=== PATIENT | female | born 1975 | race Caucasian/White ===

== ENCOUNTER 2020-08-13 11:12 | Inpatient (IN) | payer BC ==
[2020-08-13] MEDS ORDERED: Sodium Chloride 0.9% 2.5 ML Syringe FLUSH PRN ×2 (11:31→15:27)
[2020-08-13] MEDS ORDERED: Sodium Chloride 0.9% 10 ML Syringe FLUSH PRN (11:31)
--- NOTE | 2020-08-13 11:37 | EDM.PDOC ---
ED HPI GENERAL MEDICAL PROBLEM - General Chief Complaint: Bite:Animal, Insect Stated Complaint: INFECTED RT HAND Time Seen by Provider: 08/13/20 11:20 Source of Information: Reports: Patient History Limitations: Reports: No Limitations - History of Present Illness INITIAL COMMENTS - FREE TEXT/NARRATIVE: HISTORY AND PHYSICAL: History of present illness: The patient is a 45-year-old female who presents to the emergency room for complaints of increased right hand erythema and swelling from the cat bite from Tuesday. The cat is the patient's and is up to date on vaccinations. The patient is up to date on her tetanus per the patient. The patient saw Dr. Frausto on Tuesday afternoon and was prescribed Augmentin she took 2 tablets on Tuesday, 2 tablets yesterday, and 1 tablet today. She has had increased redness and swelling each day. Yesterday she mandeep a graham around her the edges of the erythema and today there is marked erythema superior to wound. Dr. Frausto had jah d the patient to watch for the advancement of the red line, however, the patient thought that Dr. Frausto meant streaks of a red line and not the advancement of her already present erythema. The patient went to see Dr. Frautso today and was sent to the ED for evaluation of IV antibiotic therapy due to failed oral antibiotic therapy. Patient is rating her right hand pain 8/10. The patient is hemodynamically stable with a pulse of 83 and blood pressure of 147/91 in the emergency department. She is afebrile with a temperature of 97.5. Patient denies any fever, chills, headache, change in vision, syncope or near syncope. Denies any chest pain, back pain, shortness of breath or cough. Denies any abdominal pain, nausea, vomiting, diarrhea, constipation or dysuria. Has not noted any blood in urine or stool. Patient has been eating and drinking appropriately. Review of systems: As per history of present illness and below otherwise all systems reviewed and negative. Past medical history: As per history of present illness and as reviewed below otherwise noncontributory. Surgical history: As per history of present illness and as reviewed below otherwise noncontributory. Social history: See social history for further information Family history: As per history of present illness and as reviewed below otherwise noncontributory. Physical exam: General: Well developed and well nourished. Alert and orientated x 3. Nontoxic in appearance and in no acute distress. Vital signs are stable and have been reviewed by me. Nursing notes were reviewed. HEENT: Atraumatic, normocephalic, pupils equal and reactive bilaterally, negative for conjunctival pallor or scleral icterus, mucous membranes moist, TMs normal bilaterally, throat clear, neck supple, nontender, trachea midline. No drooling or trismus noted. No meningeal signs. No hot potato voice noted. Lungs: Clear to auscultation bilaterally. No wheezes, rales, or rhonchi. Chest nontender. Normal work of breathing, no accessory muscles used. Heart: S1S2, regular rate and rhythm without overt murmur, gallops, or rubs. No JVD. No peripheral edema Abdomen: Soft, nondistended, nontender. Normoactive bowel sounds. Negative for m asses or costovertebral tenderness. Skin: Right hand edematous with erythema from tips of fingers extending 13 cm up forearm. Tender to touch. Sensation intact. Unable to thumb touch 1st -4th finger, unable to 5th due to pain. RT. Radial pulse 3+. Hematologic: No petechiae or purpra. Mucosa appropriate color and normal nail bed color and refill. Extremities: Atraumatic, moves all extremities per self without difficulty or deficits, negative for cords or calf pain. Neurovascular unremarkable. Neuro: Awake, alert, oriented. Cranial nerves II through XII unremarkable. Cerebellum unremarkable. Motor and sensory unremarkable throughout. Exam nonfocal. Psychiatric: Mood and affect are appropriate. Normal thought process. Answering questions appropriately. Notes: *This patient was seen and evaluated during the 2019 SARS-CoV-2 novel coronavirus pandemic period. Community viral transmission is ongoing at time of this encounter and the emergency department is operating under pandemic response procedures. After examination and discussion the patient is agreeable to CBC, CMP, blood cultures, and x-ray, COVID 19 swab, and IV pain medication. Patient informed of possible need for admission for IV antibiotic therapy due to failed outpatient antibiotic therapy. I spoke with Dr. Campos, hospitalist, she asked for a CT of the hand with contrast to look for an abscess after CMP is resulted. The patient's GFR and creatinine are within normal limits, CT of hand with contrast ordered. Patient is aware and agreeable to CT. She states her pain is better. The patient's CBC and CMP are unremarkable. The hand x-rayImpression: Severe dorsal and distal forearm soft tissue swelling without obvious subcutaneous emphysema or radiopaque foreign body. No displaced fracture. Hand CT IMPRESSION: 1. Fat infiltration in the dorsum of the hand, wrist, and distal forearm from edema or cellulitis. Small amount of fluid in the 3rd extensor compartment tendon sheath and around the flexor tendons at the wrist. Septic tenosynovitis is not excluded. No fluid collections otherwise. 2. No bony abnormality. Dr. Campos paged. Dr. Campos to look at the hand CT and return call. Dr. Wallace returned phone call, and after reviewing the CT agreed to inpatient admission without telemetry. Dr. Campos would like Zosyn 3.375 g and clindamycin 600 mg given IV. The patient is informed and is agreeable to the plan. Diagnostics: CBC, CMP, blood cultures, Rt. hand x-ray, Covid swab, CT of Rt. hand Therapeutics: IV Toradol, IV fluids, Zosyn 3.375 gm, clindamycin 600 mg Impression: Right hand cellulitis Definitive disposition and diagnosis as appropriate pending reevaluation and review of above. right wrist Pain Score (Numeric/FACES): 8 - Related Data Allergies Allergy/AdvReac Type Severity Reaction Status Date / Time No Known Allergies Allergy Verified 08/13/20 15:58 Home Meds: Home Meds Amoxicillin/Potassium Clav [Amox-Clav 875-125 mg Tablet] 1 tab PO Q12H 08/13/20 [History] Levothyroxine 1 tab PO DAILY 08/13/20 [History] Past Medical History HEENT History: Reports: Other (See Below) Other HEENT History: wears glasses Endocrine/Metabolic History: Reports: Hypothyroidism Other Endocrine/Metabolic History: does not take medication Dermatologic History: Reports: Other (See Below) Other Dermatologic History: hx of hand wound positive for MRSA - Infectious Disease History Infectious Disease History: Reports: None Social & Family History - Family History Family Medical History: No Pertinent Family History - Tobacco Use Tobacco Use Status *Q: Never Tobacco User - Caffeine Use Caffeine Use: Reports: None - Recreational Drug Use Recreational Drug Use: No ED ROS GENERAL - Review of Systems Review Of Systems: Comprehensive ROS is negative, except as noted in HPI. ED EXAM, ANIMAL BITE - Physical Exam Exam: See Below (See dictation) Course - Vital Signs Last Recorded V/S: Last Vital Signs Temp 99.3 F 08/13/20 19:49 Pulse 77 08/13/20 19:49 Resp 16 08/13/20 19:49 BP 131/72 08/13/20 19:49 Pulse Ox 98 08/13/20 19:49 - Orders/Labs/Meds Orders: Active Orders 24 hr Category Date Time Status Admission Status [Patient Status] [ADT] Stat ADT 08/13/20 14:24 Active CULTURE BLOOD [BC] Stat Lab 08/13/20 12:05 Results CULTURE BLOOD [BC] Stat Lab 08/13/20 12:20 Received Blood Culture x2 Reflex Set [OM.PC] Stat Oth 08/13/20 11:38 Ordered Medication Orders Acetaminophen (Acetaminophen 325 Mg Tab) 650 mg PO Q4H PRN PRN Reason: Pain (Mild 1-3)/fever Enoxaparin Sodium (Enoxaparin 40 Mg/0.4 Ml Syringe) 40 mg SUBCUT Q24H [facility] Last Admin: 08/13/20 16:17 Dose: 40 mg Documented by: ALISSA Piperacillin Sod/Tazobactam (Sod 3.375 gm/ Sodium Chloride) 50 mls @ 100 mls/hr IV Q6H [facility] Last Admin: 08/13/20 21:48 Dose: 100 mls/hr Documented by: KEON Clindamycin Phosphate 600 mg/ (Premix) 50 mls @ 100 mls/hr IV Q6H [facility] Last Admin: 08/13/20 19:56 Dose: 100 mls/hr Documented by: KEON Ibuprofen (Ibuprofen 400 Mg Tab) 400 mg PO Q6H PRN PRN Reason: Pain Morphine Sulfate (Morphine 2 Mg/Ml Syringe) 2 mg IVPUSH Q4H PRN PRN Reason: Pain Ondansetron HCl (Ondansetron 4 Mg/2 Ml Sdv) 4 mg IVPUSH Q4H PRN PRN Reason: Nausea Oxycodone HCl (Oxycodone 5 Mg Tab) 5 mg PO Q4H PRN PRN Reason: Pain (moderate 4-6) Last Admin: 08/13/20 21:14 Dose: 5 mg Documented by: KEON Sodium Chloride (Sodium Chloride 0.9% 2.5 Ml Syringe) 2.5 ml FLUSH ASDIRECTED PRN PRN Reason: Keep Vein Open Labs: Laboratory Tests 08/13/20 08/13/20 08/13/20 Range/Units 11:52 11:52 12:03 WBC 6.94 (4.0-11.0) K/uL RBC 4.46 (4.30-5.90) M/uL Hgb 13.2 (12.0-16.0) g/dL Hct 39.4 (36.0-46.0) % MCV 88.3 (80.0-98.0) fL MCH 29.6 (27.0-32.0) pg MCHC 33.5 (31.0-37.0) g/dL RDW Std Deviation 41.3 (28.0-62.0) fl RDW Coeff of Trudy 13 (11.0-15.0) % Plt Count 235 (150-400) K/uL MPV 9.60 (7.40-12.00) fL Neut % (Auto) 75.6 (48.0-80.0) % Lymph % (Auto) 10.7 L (16.0-40.0) % Mora % (Auto) 10.4 (0.0-15.0) % Eos % (Auto) 3.0 (0.0-7.0) % Baso % (Auto) 0.3 (0.0-1.5) % Neut # (Auto) 5.3 (1.4-5.7) K/uL Lymph # (Auto) 0.7 (0.6-2.4) K/uL Mora # (Auto) 0.7 (0.0-0.8) K/uL Eos # (Auto) 0.2 (0.0-0.7) K/uL Baso # (Auto) 0.0 (0.0-0.1) K/uL Nucleated RBC % 0.0 /100WBC Nucleated RBCs # 0 K/uL Lactate (0.20-2.00) mmol/L Sodium 137 (136-145) mmol/L Potassium 4.3 (3.5-5.1) mmol/L Chloride 104 (98-107) mmol/L Carbon Dioxide 22.9 (21.0-32.0) mmol/L BUN 13 (7.0-18.0) mg/dL Creatinine 0.9 (0.6-1.0) mg/dL Est Cr Clr Drug Dosing 67.45 mL/min Estimated GFR (MDRD) > 60.0 ml/min Glucose 99 (74-106) mg/dL Calcium 8.7 (8.5-10.1) mg/dL Total Bilirubin 0.5 (0.2-1.0) mg/dL AST 17 (15-37) IU/L ALT 31 (14-63) IU/L Alkaline Phosphatase 90 (46-116) U/L Total Protein 7.3 (6.4-8.2) g/dL Albumin 3.6 (3.4-5.0) g/dL Globulin 3.7 (2.6-4.0) g/dL Albumin/Globulin Ratio 1.0 (0.9-1.6) SARS-CoV-2 RNA (ABRIL) NEGATIVE (NEGATIVE) 08/13/20 Range/Units 12:07 WBC (4.0-11.0) K/uL RBC (4.30-5.90) M/uL Hgb (12.0-16.0) g/dL Hct (36.0-46.0) % MCV (80.0-98.0) fL MCH (27.0-32.0) pg MCHC (31.0-37.0) g/dL RDW Std Deviation (28.0-62.0) fl RDW Coeff of Trudy (11.0-15.0) % Plt Count (150-400) K/uL MPV (7.40-12.00) fL Neut % (Auto) (48.0-80.0) % Lymph % (Auto) (16.0-40.0) % Mora % (Auto) (0.0-15.0) % Eos % (Auto) (0.0-7.0) % Baso % (Auto) (0.0-1.5) % Neut # (Auto) (1.4-5.7) K/uL Lymph # (Auto) (0.6-2.4) K/uL Mora # (Auto) (0.0-0.8) K/uL Eos # (Auto) (0.0-0.7) K/uL Baso # (Auto) (0.0-0.1) K/uL Nucleated RBC % /100WBC Nucleated RBCs # K/uL Lactate 0.9 (0.20-2.00) mmol/L Sodium (136-145) mmol/L Potassium (3.5-5.1) mmol/L Chloride (98-107) mmol/L Carbon Dioxide (21.0-32.0) mmol/L BUN (7.0-18.0) mg/dL Creatinine (0.6-1.0) mg/dL Est Cr Clr Drug Dosing mL/min Estimated GFR (MDRD) ml/min Glucose (74-106) mg/dL Calcium (8.5-10.1) mg/dL Total Bilirubin (0.2-1.0) mg/dL AST (15-37) IU/L ALT (14-63) IU/L Alkaline Phosphatase (46-116) U/L Total Protein (6.4-8.2) g/dL Albumin (3.4-5.0) g/dL Globulin (2.6-4.0) g/dL Albumin/Globulin Ratio (0.9-1.6) SARS-CoV-2 RNA (ABRIL) (NEGATIVE) Meds: Medications Generic Name Dose Route Start Last Admin Trade Name Freq PRN Reason Stop Dose Admin Acetaminophen 650 mg 08/13/20 15:27 Acetaminophen 325 Mg Tab PO Q4H PRN Pain (Mild 1-3)/fever Enoxaparin Sodium 40 mg 08/13/20 16:00 08/13/20 16:17 Enoxaparin 40 Mg/0.4 Ml Syringe SUBCUT 40 mg Q24H MARTY Administration Piperacillin Sod/Tazobactam 50 mls @ 100 mls/hr 08/13/20 21:00 08/13/20 21:48 Sod 3.375 gm/ Sodium Chloride IV 100 mls/hr Q6H MARTY Administration Clindamycin Phosphate 600 mg/ 50 mls @ 100 mls/hr 08/13/20 20:30 08/13/20 19:56 Premix IV 100 mls/hr Q6H MARTY Administration Ibuprofen 400 mg 08/13/20 16:37 Ibuprofen 400 Mg Tab PO Q6H PRN Pain Morphine Sulfate 2 mg 08/13/20 16:09 Morphine 2 Mg/Ml Syringe IVPUSH Q4H PRN Pain Ondansetron HCl 4 mg 08/13/20 15:27 Ondansetron 4 Mg/2 Ml Sdv IVPUSH Q4H PRN Nausea Oxycodone HCl 5 mg 08/13/20 15:27 08/13/20 21:14 Oxycodone 5 Mg Tab PO 5 mg Q4H PRN Administration Pain (moderate 4-6) Sodium Chloride 2.5 ml 08/13/20 15:27 Sodium Chloride 0.9% 2.5 Ml Syringe FLUSH ASDIRECTED PRN Keep Vein Open Discontinued Medications Generic Name Dose Route Start Last Admin Trade Name Freq PRN Reason Stop Dose Admin Diphtheria/Tetanus/Acell Pertussis 0.5 ml 08/13/20 17:00 08/13/20 18:05 Diphtheria,Pertussis(Acell),Tetanus Vaccine 0.5 Ml Syringe IM 08/13/20 17:01 Not Given .ONCE ONE Sodium Chloride 1,000 mls @ 999 mls/hr 08/13/20 12:18 08/13/20 13:02 Normal Saline IV 08/13/20 13:18 999 mls/hr .BOLUS ONE Administration Piperacillin Sod/Tazobactam 50 mls @ 100 mls/hr 08/13/20 14:21 08/13/20 15:04 Sod 3.375 gm/ Sodium Chloride IV 08/13/20 14:50 100 mls/hr ONETIME ONE Administration Clindamycin Phosphate 600 mg/ 50 mls @ 100 mls/hr 08/13/20 14:21 08/13/20 14:31 Premix IV 08/13/20 14:50 100 mls/hr ONETIME STA Administration Iopamidol 75 ml 08/13/20 18:40 08/13/20 18:41 Iopamidol 755 Mg/Ml 500 Ml Multipack Bottle IVPUSH 08/13/20 18:41 75 ml ONETIME STA Administration Ketorolac Tromethamine 30 mg 08/13/20 11:46 08/13/20 12:09 Ketorolac 30 Mg/Ml Sdv IVPUSH 08/13/20 11:47 30 mg ONETIME ONE Administration Sodium Chloride 10 ml 08/13/20 11:31 08/13/20 11:43 Sodium Chloride 0.9% 10 Ml Syringe FLUSH 10 ml ASDIRECTED PRN Administration Keep Vein Open Sodium Chloride 2.5 ml 08/13/20 11:31 08/13/20 11:43 Sodium Chloride 0.9% 2.5 Ml Syringe FLUSH 2.5 ml ASDIRECTED PRN Administration Keep Vein Open Departure - Departure Time of Disposition: 14:28 Disposition: Admitted As Inpatient 65 Condition: Good Clinical Impression: Cellulitis Qualifiers: Site of cellulitis: extremity Site of cellulitis of extremity: upper extremity Laterality: right Qualified Code(s): L03.113 - Cellulitis of right upper limb - Discharge Information *PRESCRIPTION DRUG MONITORING PROGRAM REVIEWED*: Not Applicable *COPY OF PRESCRIPTION DRUG MONITORING REPORT IN PATIENT TAWANDA: Not Applicable Sepsis Event Note (ED) - Evaluation Sepsis Screening Result: No Definite Risk - Focused Exam Vital Signs: Vital Signs Temp Pulse Resp BP Pulse Ox 08/13/20 14:23 70 18 123/81 100 08/13/20 11:23 97.5 F 83 17 147/91 H 98 - My Orders Last 24 Hours: My Active Orders 08/13/20 11:38 Blood Culture x2 Reflex Set [OM.PC] Stat 08/13/20 12:05 CULTURE BLOOD [BC] Stat 08/13/20 12:20 CULTURE BLOOD [BC] Stat 08/13/20 14:24 Admission Status [Patient Status] [ADT] Stat - Assessment/Plan Last 24 Hours: My Active Orders 08/13/20 11:38 Blood Culture x2 Reflex Set [OM.PC] Stat 08/13/20 12:05 CULTURE BLOOD [BC] Stat 08/13/20 12:20 CULTURE BLOOD [BC] Stat 08/13/20 14:24 Admission Status [Patient Status] [ADT] Stat
[2020-08-13] MEDS ORDERED: Ketorolac 30 MG/ML SDV IVPUSH ONE (11:46)
[2020-08-13] MEDS ORDERED: Sodium Chloride 0.9% 1,000 ML IV ONE (12:18)
[2020-08-13 12:31] LABS: BLOOD UREA NITROGEN,BUN 13 mg/dL (7.0-18.0); CARBON DIOXIDE,CO2 22.9 mmol/L (21.0-32.0); CHLORIDE,CL 104 mmol/L (98-107); GLUCOSE RANDOM 99 mg/dL (74-106); POTASSIUM,K 4.3 mmol/L (3.5-5.1); SODIUM,NA 137 mmol/L (136-145)
--- NOTE | 2020-08-13 12:56 | CR ---
Indication: CAT bite, swelling and pain in hand and wrist Comparison: None available. Technique: AP, Lateral, and Oblique views right hand were obtained Findings: There is no displaced fracture or dislocation. The joint spaces are grossly preserved. There is severe dorsal soft tissue swelling of the hand and distal forearm. There is no obvious subcutaneous emphysema. Impression: Severe dorsal and distal forearm soft tissue swelling without obvious subcutaneous emphysema or radiopaque foreign body. No displaced fracture. Dictated by Tu Garcia MD @ 08/13/2020 12:55:[address] Tu Garcia @ Aug 13 2020 12:55PM
--- NOTE | 2020-08-13 14:03 | CT ---
HISTORY: Infected cat bite. TECHNIQUE: CT right hand with IV contrast. 100 mL Isovue 370 IV. COMPARISON: Right hand radiographs 08/13/2020. FINDINGS: Artifact from rings on the 2nd and 3rd digits. Thickening and severe infiltration of subcutaneous fat in the dorsum of the hand and wrist. Milder subcutaneous fat infiltration in the distal forearm. Small fluid in the 3rd extensor tendon sheath and around the flexor tendons at the wrist. No fluid collections otherwise. Muscle mass is maintained. No erosions. Joint spaces are maintained. No fracture or subluxation. IMPRESSION: 1. Fat infiltration in the dorsum of the hand, wrist, and distal forearm from edema or cellulitis. Small amount of fluid in the 3rd extensor compartment tendon sheath and around the flexor tendons at the wrist. Septic tenosynovitis is not excluded. No fluid collections otherwise. 2. No bony abnormality. Please note that all CT scans at this facility use dose modulation, iterative reconstruction, and/or weight-based dosing when appropriate to reduce radiation dose to as low as reasonably achievable. Dictated by Pop Call MD @ 08/13/2020 2:01:[address] Pop Call @ Aug 13 2020 2:01PM
[2020-08-13] MEDS ORDERED: Piperacillin/Tazobactam 3.375 GM in Sodium Chloride 0.9% 50 ML IV ONE (14:21)
[2020-08-13] MEDS ORDERED: Clindamycin Phosphate in D5W 600 MG in Premix Bag 1 BAG IV STA ×2 (14:21)
--- NOTE | 2020-08-13 15:21 | PCM.HP.2 ---
H&P History of Present Illness - General Date of Service: 08/13/20 Admit Problem/Dx: Admission Diagnosis/Problem Admission Diagnosis/Problem Cellulitis Source of Information: Patient History Limitations: Reports: No Limitations - History of Present Illness Initial Comments - Free Text/Narative: This a 45-year-old female with little pmh presented to the ED for complaints of increased right hand erythema and swelling from the cat bite from Tuesday. The patient saw Dr. Frausto on Tuesday afternoon and was prescribed Augmentin she took 2 tablets on Tuesday, 2 tablets yesterday, and 1 tablet today. She has had increased redness and swelling each day. Yesterday she mandeep a graham around her the edges of the erythema and today there is marked erythema superior to wound. She then went to see Dr. Frausto today and was sent to the ED for evaluation of IV antibiotic therapy due to failed oral antibiotic therapy. Patient reports pain was quite elevated in the ER but after Toradol it improved significantly. She is able to move elbow without any pain. Wrist has some ascencio ited movement due to inflammation seen with all her fingers. She reports after pain control improved her movement improved as well. Patient denies any fever, chills, headache. Denies any chest pain, shortness of breath or cough. Denies any abdominal pain, nausea, vomiting, diarrhea, constipation or dysuria. Has not noted any blood in urine or stool. She is unsure of tetanus vaccination after she was asked about it initially in the ER but thinking back she may be out of date. She reports as far as she knows the cat is up-to-date on vaccinations. She denies any alcohol use no tobacco use no recreational drug use. In the ER no leukocytosis noted white count 6000. Lactic acid 0.9 BUN and creatinine 13 and 0.9 Covid negative. X-ray of the hand revealed severe dorsal and distal forearm soft tissue swelling without obvious subcutaneous emphysema or radiopaque foreign body no displaced fracture. Head CT was also obtained second to severity of cellulitis. This noted fat infiltration in the dorsum of the hand, wrist, and distal forearm from edema or cellulitis. Small amount of fluid in the third extensor compartment tendon sheath and around the flexor tendons at the wrist. Septic tenosynovitis is not excluded no fluid collections otherwise. No bony abnormality noted. In the ER she was treated with Zosyn and clindamycin. Blood cultures obtained patient given Toradol as well as 1 L fluid bolus. She will be admitted inpatient for cellulitis from cat bite failed outpatient management. right wrist Pain Score (Numeric/FACES): 8 - Related Data Allergies/Adverse Reactions: Allergies Allergy/AdvReac Type Severity Reaction Status Date / Time No Known Allergies Allergy Verified 08/13/20 15:58 Home Medications: Home Meds Amoxicillin/Potassium Clav [Amox-Clav 875-125 mg Tablet] 1 tab PO Q12H 08/13/20 [History] Levothyroxine 1 tab PO DAILY 08/13/20 [History] Past Medical History HEENT History: Reports: Other (See Below) Other HEENT History: wears glasses Cardiovascular History: Reports: None. Denies: Afib, Blood Clots/VTE/DVT, CAD, Hypertension Respiratory History: Reports: None. Denies: Asthma, COPD Endocrine/Metabolic History: Reports: Hypothyroidism. Denies: Diabetes, Type II, Obesity/BMI 30+ Dermatologic History: Reports: Other (See Below) Other Dermatologic History: hx of hand wound positive for MRSA - Infectious Disease History Infectious Disease History: Reports: None Social & Family History - Family History Family Medical History: No Pertinent Family History - Tobacco Use Tobacco Use Status *Q: Never Tobacco User - Caffeine Use Caffeine Use: Reports: None - Alcohol Use Alcohol Use History: No - Recreational Drug Use Recreational Drug Use: No H&P Review of Systems - Review of Systems: Review Of Systems: See Below General: Reports: No Symptoms. Denies: Fever, Chills, Malaise, Weakness HEENT: Reports: No Symptoms. Denies: Headaches, Sinus Congestion, Sore Throat Pulmonary: Reports: No Symptoms. Denies: Shortness of Breath Cardiovascular: Reports: No Symptoms. Denies: Chest Pain Gastrointestinal: Reports: No Symptoms. Denies: Abdominal Pain, Nausea, Vomiting Genitourinary: Reports: No Symptoms. Denies: Dysuria, Frequency Musculoskeletal: Reports: Hand Pain (Right hand and wrist pain) Skin: Reports: Wound (Multiple scratches noted to bilateral hands 2 puncture wounds noted on anterior and posterior right wrist) Psychiatric: Reports: No Symptoms Neurological: Reports: No Symptoms Hematologic/Lymphatic: Reports: No Symptoms Immunologic: Reports: No Symptoms Exam - Exam Exam: See Below - Vital Signs Vital Signs: Last Vital Signs Temp 97.5 F 08/13/20 11:23 Pulse 70 08/13/20 14:23 Resp 18 08/13/20 14:23 BP 123/81 08/13/20 14:23 Pulse Ox 100 08/13/20 14:23 Weight: 88.904 kg - Exam Quality Assessment: DVT Prophylaxis. No: Supplemental Oxygen General: Alert, Oriented, Cooperative HEENT: Conjunctiva Clear, Mucosa Moist & [place], Posterior Pharynx Clear Lungs: Clear to Auscultation, Normal Respiratory Effort Cardiovascular: Regular Rate, Regular Rhythm GI/Abdominal Exam: Normal Bowel Sounds, Soft, Non-Tender Extremities: Normal Inspection, Normal Range of Motion, Non-Tender Skin: Wound (Multiple scratches noted to bilateral hands 2 puncture wounds noted on anterior and posterior right wrist. Serous drainage coming from both puncture sites. No crepitus no fluctuance noted to hand or wrist. Significant swelling and edema noted to right hand and wrist.) Neuro Extensive - Mental Status: Alert, Oriented x3 Neuro Extensive - Motor, Sensory, Reflexes: CN II-XII Intact - Patient Data Lab Results Last 24 hrs: Laboratory Results - last 24 hr 08/13/20 08/13/20 08/13/20 Range/Units 11:52 11:52 12:03 WBC 6.94 (4.0-11.0) K/uL RBC 4.46 (4.30-5.90) M/uL Hgb 13.2 (12.0-16.0) g/dL Hct 39.4 (36.0-46.0) % MCV 88.3 (80.0-98.0) fL MCH 29.6 (27.0-32.0) pg MCHC 33.5 (31.0-37.0) g/dL RDW Std Deviation 41.3 (28.0-62.0) fl RDW Coeff of Trudy 13 (11.0-15.0) % Plt Count 235 (150-400) K/uL MPV 9.60 (7.40-12.00) fL Neut % (Auto) 75.6 (48.0-80.0) % Lymph % (Auto) 10.7 L (16.0-40.0) % [place] % (Auto) 10.4 (0.0-15.0) % Eos % (Auto) 3.0 (0.0-7.0) % Baso % (Auto) 0.3 (0.0-1.5) % Neut # (Auto) 5.3 (1.4-5.7) K/uL Lymph # (Auto) 0.7 (0.6-2.4) K/uL [place] # (Auto) 0.7 (0.0-0.8) K/uL Eos # (Auto) 0.2 (0.0-0.7) K/uL Baso # (Auto) 0.0 (0.0-0.1) K/uL Nucleated RBC % 0.0 /100WBC Nucleated RBCs # 0 K/uL Lactate (0.20-2.00) mmol/L Sodium 137 (136-145) mmol/L Potassium 4.3 (3.5-5.1) mmol/L Chloride 104 (98-107) mmol/L Carbon Dioxide 22.9 (21.0-32.0) mmol/L BUN 13 (7.0-18.0) mg/dL Creatinine 0.9 (0.6-1.0) mg/dL Est Cr Clr Drug Dosing 67.45 mL/min Estimated GFR (MDRD) > 60.0 ml/min Glucose 99 (74-106) mg/dL Calcium 8.7 (8.5-10.1) mg/dL Total Bilirubin 0.5 (0.2-1.0) mg/dL AST 17 (15-37) IU/L ALT 31 (14-63) IU/L Alkaline Phosphatase 90 (46-116) U/L Total Protein 7.3 (6.4-8.2) g/dL Albumin 3.6 (3.4-5.0) g/dL Globulin 3.7 (2.6-4.0) g/dL Albumin/Globulin Ratio 1.0 (0.9-1.6) SARS-CoV-2 RNA (ABRIL) NEGATIVE (NEGATIVE) 08/13/20 Range/Units 12:07 WBC (4.0-11.0) K/uL RBC (4.30-5.90) M/uL Hgb (12.0-16.0) g/dL Hct (36.0-46.0) % MCV (80.0-98.0) fL MCH (27.0-32.0) pg MCHC (31.0-37.0) g/dL RDW Std Deviation (28.0-62.0) fl RDW Coeff of Trudy (11.0-15.0) % Plt Count (150-400) K/uL MPV (7.40-12.00) fL Neut % (Auto) (48.0-80.0) % Lymph % (Auto) (16.0-40.0) % [place] % (Auto) (0.0-15.0) % Eos % (Auto) (0.0-7.0) % Baso % (Auto) (0.0-1.5) % Neut # (Auto) (1.4-5.7) K/uL Lymph # (Auto) (0.6-2.4) K/uL [place] # (Auto) (0.0-0.8) K/uL Eos # (Auto) (0.0-0.7) K/uL Baso # (Auto) (0.0-0.1) K/uL Nucleated RBC % /100WBC Nucleated RBCs # K/uL Lactate 0.9 (0.20-2.00) mmol/L Sodium (136-145) mmol/L Potassium (3.5-5.1) mmol/L Chloride (98-107) mmol/L Carbon Dioxide (21.0-32.0) mmol/L BUN (7.0-18.0) mg/dL Creatinine (0.6-1.0) mg/dL Est Cr Clr Drug Dosing mL/min Estimated GFR (MDRD) ml/min Glucose (74-106) mg/dL Calcium (8.5-10.1) mg/dL Total Bilirubin (0.2-1.0) mg/dL AST (15-37) IU/L ALT (14-63) IU/L Alkaline Phosphatase (46-116) U/L Total Protein (6.4-8.2) g/dL Albumin (3.4-5.0) g/dL Globulin (2.6-4.0) g/dL Albumin/Globulin Ratio (0.9-1.6) SARS-CoV-2 RNA (ABRIL) (NEGATIVE) Result Diagrams: 08/13/20 11:52 08/13/20 11:52 Noah Results Last 24 hrs: Microbiology 08/13/20 12:05 Anaerobic Blood Culture - Final Blood - Venous Sepsis Event Note - Evaluation Sepsis Screening Result: No Definite Risk - Focused Exam Vital Signs: Vital Signs Temp Pulse Resp BP Pulse Ox 08/13/20 14:23 70 18 123/81 100 08/13/20 11:23 97.5 F 83 17 147/91 H 98 - Problem List (1) Cat bite of hand SNOMED Code(s): 002265039 ICD Code: S61.459A - OPEN BITE OF UNSPECIFIED HAND, INITIAL ENCOUNTER; W55.01XA - BITTEN BY CAT, INITIAL ENCOUNTER Status: Acute Current Visit: Yes Qualifiers: Encounter type: subsequent encounter Laterality: right Qualified Code(s): S61.451D - Open bite of right hand, subsequent encounter; W55.01XD - Bitten by cat, subsequent encounter (2) Cellulitis SNOMED Code(s): 990136145 ICD Code: L03.90 - CELLULITIS, UNSPECIFIED Status: Acute Current Visit: Yes Qualifiers: Site of cellulitis: extremity Site of cellulitis of extremity: upper extremity Laterality: right Qualified Code(s): L03.113 - Cellulitis of right upper limb (3) Hypothyroidism SNOMED Code(s): 08914772 ICD Code: E03.9 - HYPOTHYROIDISM, UNSPECIFIED Status: Acute Current Visit: Yes Problem List Initiated/Reviewed/Updated: Yes Orders Last 24hrs: Active Orders 24 hr Category Date Time Status Admission Status [Patient Status] [ADT] Stat ADT 08/13/20 14:24 Active CULTURE BLOOD [BC] Stat Lab 08/13/20 12:05 Results CULTURE BLOOD [BC] Stat Lab 08/13/20 12:20 Received Sodium Chloride 0.9% [Saline Flush] Med 08/13/20 11:31 Active 10 ml FLUSH ASDIRECTED PRN Sodium Chloride 0.9% [Saline Flush] Med 08/13/20 11:31 Active 2.5 ml FLUSH ASDIRECTED PRN Blood Culture x2 Reflex Set [OM.PC] Stat Oth 08/13/20 11:38 Ordered Saline Lock Insert [OM.PC] Stat Oth 08/13/20 11:31 Ordered Medication Orders Sodium Chloride (Sodium Chloride 0.9% 10 Ml Syringe) 10 ml FLUSH ASDIRECTED PRN PRN Reason: Keep Vein Open Last Admin: 08/13/20 11:43 Dose: 10 ml Documented by: [email or web address] Sodium Chloride (Sodium Chloride 0.9% 2.5 Ml Syringe) 2.5 ml FLUSH ASDIRECTED PRN PRN Reason: Keep Vein Open Last Admin: 08/13/20 11:43 Dose: 2.5 ml Documented by: [email or web address] Assessment/Plan Comment:: This 45-year-old female admitted with cellulitis after cat bite to right hand 1. Right hand cellulitis secondary to cat bite -Continue clindamycin and Zosyn -Blood cultures pending -Monitor closely for progression consider hand surgeon consultation in a.m. if erythema and pain do not improve. -Keep hand elevated -Monitor CMS every 4 hours -Repeat lab work in a.m. VTE prophylaxis: Lovenox CODE STATUS: Full code Dispo 2 to 3 days pending improvement.
[2020-08-13] MEDS ORDERED: Acetaminophen 325 MG Tab PO PRN (15:27)
[2020-08-13] MEDS ORDERED: Ondansetron 4 MG/2 ML SDV IVPUSH PRN (15:27)
[2020-08-13] MEDS ORDERED: Morphine 2 MG/ML SYRINGE IVPUSH PRN (16:09)
[2020-08-13] MEDS: Enoxaparin 40 MG/0.4 ML Syringe SUBCUT SCH (16:17)
[2020-08-13] MEDS ORDERED: Diphtheria,Pertussis(Acell),Tetanus Vaccine 0.5 ML Syringe IM ONE ×2 (16:39→17:00)
[2020-08-13] MEDS ORDERED: Iopamidol 755 MG/ML 500 ML Multipack Bottle IVPUSH STA (18:40)
[2020-08-13] MEDS: Clindamycin Phosphate in D5W 600 MG in Premix Bag 1 BAG IV SCH ×2 (19:56)
[2020-08-13] MEDS: oxyCODONE 5 MG Tab PO PRN (21:14)
[2020-08-13] MEDS: Piperacillin/Tazobactam 3.375 GM in Sodium Chloride 0.9% 50 ML IV SCH (21:48)
[2020-08-14] MEDS: Clindamycin Phosphate in D5W 600 MG in Premix Bag 1 BAG IV SCH ×4 (03:01→08:19)
[2020-08-14] MEDS: oxyCODONE 5 MG Tab PO PRN ×4 (03:08→20:35)
[2020-08-14] MEDS: Piperacillin/Tazobactam 3.375 GM in Sodium Chloride 0.9% 50 ML IV SCH ×4 (04:24→20:27)
[2020-08-14 07:18] LABS: BLOOD UREA NITROGEN,BUN 15 mg/dL (7.0-18.0); CARBON DIOXIDE,CO2 22.5 mmol/L (21.0-32.0); CHLORIDE,CL 103 mmol/L (98-107); GLUCOSE RANDOM 115 mg/dL (74-106); POTASSIUM,K 4.3 mmol/L (3.5-5.1); SODIUM,NA 135 mmol/L (136-145)
[2020-08-14] MEDS: Ibuprofen 400 MG Tab PO PRN ×2 (08:16→20:38)
--- NOTE | 2020-08-14 09:55 | PCM.PN ---
- General Info Date of Service: 08/14/20 Admission Dx/Problem (Free Text): Admission Diagnosis/Problem Admission Diagnosis/Problem Cellulitis Subjective Update: Patient feeling improved today swelling has decreased pain is better as well. She continues to have movement of her wrist with some pain movement of her fingers which has improved with edema improvement. No chest pain shortness of breath no fevers or chills she is eating and drinking well. Functional Status: Reports: Pain Controlled, Tolerating Diet, Ambulating, Urinating - Review of Systems General: Reports: No Symptoms. Denies: Fever, Weakness, Fatigue HEENT: Reports: No Symptoms. Denies: Headaches, Sinus Congestion, Sore Throat Pulmonary: Reports: No Symptoms. Denies: Shortness of Breath Cardiovascular: Reports: No Symptoms. Denies: Chest Pain Gastrointestinal: Reports: No Symptoms. Denies: Abdominal Pain Genitourinary: Reports: No Symptoms. Denies: Dysuria, Frequency Musculoskeletal: Reports: No Symptoms Skin: Reports: No Symptoms Neurological: Reports: No Symptoms Psychiatric: Reports: No Symptoms - Patient Data Vitals - Most Recent: Last Vital Signs Temp 97.8 F 08/14/20 07:56 Pulse 64 08/14/20 07:56 Resp 18 08/14/20 07:56 BP 116/69 08/14/20 07:56 Pulse Ox 98 08/14/20 07:56 Weight - Most Recent: 72.665 kg I&O - Last 24 Hours: Intake & Output 08/13/20 08/14/20 08/14/20 22:59 06:59 14:59 Intake Total 600 Balance 600 Lab Results Last 24 Hours: Laboratory Results - last 24 hr 08/13/20 08/13/20 08/13/20 Range/Units 11:52 11:52 12:03 WBC 6.94 (4.0-11.0) K/uL RBC 4.46 (4.30-5.90) M/uL Hgb 13.2 (12.0-16.0) g/dL Hct 39.4 (36.0-46.0) % MCV 88.3 (80.0-98.0) fL MCH 29.6 (27.0-32.0) pg MCHC 33.5 (31.0-37.0) g/dL RDW Std Deviation 41.3 (28.0-62.0) fl RDW Coeff of Trudy 13 (11.0-15.0) % Plt Count 235 (150-400) K/uL MPV 9.60 (7.40-12.00) fL Neut % (Auto) 75.6 (48.0-80.0) % Lymph % (Auto) 10.7 L (16.0-40.0) % [place] % (Auto) 10.4 (0.0-15.0) % Eos % (Auto) 3.0 (0.0-7.0) % Baso % (Auto) 0.3 (0.0-1.5) % Neut # (Auto) 5.3 (1.4-5.7) K/uL Lymph # (Auto) 0.7 (0.6-2.4) K/uL [place] # (Auto) 0.7 (0.0-0.8) K/uL Eos # (Auto) 0.2 (0.0-0.7) K/uL Baso # (Auto) 0.0 (0.0-0.1) K/uL Nucleated RBC % 0.0 /100WBC Nucleated RBCs # 0 K/uL Lactate (0.20-2.00) mmol/L Sodium 137 (136-145) mmol/L Potassium 4.3 (3.5-5.1) mmol/L Chloride 104 (98-107) mmol/L Carbon Dioxide 22.9 (21.0-32.0) mmol/L BUN 13 (7.0-18.0) mg/dL Creatinine 0.9 (0.6-1.0) mg/dL Est Cr Clr Drug Dosing 67.45 mL/min Estimated GFR (MDRD) > 60.0 ml/min Glucose 99 (74-106) mg/dL Calcium 8.7 (8.5-10.1) mg/dL Magnesium (1.8-2.4) mg/dL Total Bilirubin 0.5 (0.2-1.0) mg/dL AST 17 (15-37) IU/L ALT 31 (14-63) IU/L Alkaline Phosphatase 90 (46-116) U/L Total Protein 7.3 (6.4-8.2) g/dL Albumin 3.6 (3.4-5.0) g/dL Globulin 3.7 (2.6-4.0) g/dL Albumin/Globulin Ratio 1.0 (0.9-1.6) SARS-CoV-2 RNA (ABRIL) NEGATIVE (NEGATIVE) 08/13/20 08/14/20 08/14/20 Range/Units 12:07 06:40 06:40 WBC 4.77 (4.0-11.0) K/uL RBC 3.94 L (4.30-5.90) M/uL Hgb 11.7 L (12.0-16.0) g/dL Hct 34.8 L (36.0-46.0) % MCV 88.3 (80.0-98.0) fL MCH 29.7 (27.0-32.0) pg MCHC 33.6 (31.0-37.0) g/dL RDW Std Deviation 42.0 (28.0-62.0) fl RDW Coeff of Trudy 13 (11.0-15.0) % Plt Count 212 (150-400) K/uL MPV 9.80 (7.40-12.00) fL Neut % (Auto) 62.8 (48.0-80.0) % Lymph % (Auto) 22.2 (16.0-40.0) % [place] % (Auto) 9.6 (0.0-15.0) % Eos % (Auto) 4.8 (0.0-7.0) % Baso % (Auto) 0.6 (0.0-1.5) % Neut # (Auto) 3.0 (1.4-5.7) K/uL Lymph # (Auto) 1.1 (0.6-2.4) K/uL [place] # (Auto) 0.5 (0.0-0.8) K/uL Eos # (Auto) 0.2 (0.0-0.7) K/uL Baso # (Auto) 0.0 (0.0-0.1) K/uL Nucleated RBC % 0.0 /100WBC Nucleated RBCs # 0 K/uL Lactate 0.9 (0.20-2.00) mmol/L Sodium 135 L (136-145) mmol/L Potassium 4.3 (3.5-5.1) mmol/L Chloride 103 (98-107) mmol/L Carbon Dioxide 22.5 (21.0-32.0) mmol/L BUN 15 (7.0-18.0) mg/dL Creatinine 0.9 (0.6-1.0) mg/dL Est Cr Clr Drug Dosing 67.45 mL/min Estimated GFR (MDRD) > 60.0 ml/min Glucose 115 H (74-106) mg/dL Calcium 7.7 L (8.5-10.1) mg/dL Magnesium 1.8 (1.8-2.4) mg/dL Total Bilirubin (0.2-1.0) mg/dL AST (15-37) IU/L ALT (14-63) IU/L Alkaline Phosphatase (46-116) U/L Total Protein (6.4-8.2) g/dL Albumin (3.4-5.0) g/dL Globulin (2.6-4.0) g/dL Albumin/Globulin Ratio (0.9-1.6) SARS-CoV-2 RNA (ABRIL) (NEGATIVE) Noah Results Last 24 Hours: Microbiology 08/13/20 12:05 Anaerobic Blood Culture - Final Blood - Venous Med Orders - Current: Current Medications Acetaminophen (Acetaminophen 325 Mg Tab) 650 mg PO Q4H PRN PRN Reason: Pain (Mild 1-3)/fever Enoxaparin Sodium (Enoxaparin 40 Mg/0.4 Ml Syringe) 40 mg SUBCUT Q24H [facility] Last Admin: 08/13/20 16:17 Dose: 40 mg Documented by: Piperacillin Sod/Tazobactam (Sod 3.375 gm/ Sodium Chloride) 50 mls @ 100 mls/hr IV Q6H [facility] Last Admin: 08/14/20 09:23 Dose: 100 mls/hr Documented by: Clindamycin Phosphate 600 mg/ (Premix) 50 mls @ 100 mls/hr IV Q6H [facility] Last Admin: 08/14/20 08:19 Dose: 100 mls/hr Documented by: Ibuprofen (Ibuprofen 400 Mg Tab) 400 mg PO Q6H PRN PRN Reason: Pain Last Admin: 08/14/20 08:16 Dose: 400 mg Documented by: Morphine Sulfate (Morphine 2 Mg/Ml Syringe) 2 mg IVPUSH Q4H PRN PRN Reason: Pain Ondansetron HCl (Ondansetron 4 Mg/2 Ml Sdv) 4 mg IVPUSH Q4H PRN PRN Reason: Nausea Oxycodone HCl (Oxycodone 5 Mg Tab) 5 mg PO Q4H PRN PRN Reason: Pain (moderate 4-6) Last Admin: 08/14/20 03:08 Dose: 5 mg Documented by: Sodium Chloride (Sodium Chloride 0.9% 2.5 Ml Syringe) 2.5 ml FLUSH ASDIRECTED PRN PRN Reason: Keep Vein Open Discontinued Medications Diphtheria/Tetanus/Acell Pertussis (Diphtheria,Pertussis(Acell),Tetanus Vaccine 0.5 Ml Syringe) 0.5 ml IM .ONCE ONE Stop: 08/13/20 17:01 Last Admin: 08/13/20 18:05 Dose: Not Given Documented by: Sodium Chloride (Normal Saline) 1,000 mls @ 999 mls/hr IV .BOLUS ONE Stop: 08/13/20 13:18 Last Admin: 08/13/20 13:02 Dose: 999 mls/hr Documented by: Piperacillin Sod/Tazobactam (Sod 3.375 gm/ Sodium Chloride) 50 mls @ 100 mls/hr IV ONETIME ONE Stop: 08/13/20 14:50 Last Admin: 08/13/20 15:04 Dose: 100 mls/hr Documented by: Clindamycin Phosphate 600 mg/ (Premix) 50 mls @ 100 mls/hr IV ONETIME STA Stop: 08/13/20 14:50 Last Admin: 08/13/20 14:31 Dose: 100 mls/hr Documented by: Iopamidol (Iopamidol 755 Mg/Ml 500 Ml Multipack Bottle) 75 ml IVPUSH ONETIME STA Stop: 08/13/20 18:41 Last Admin: 08/13/20 18:41 Dose: 75 ml Documented by: Ketorolac Tromethamine (Ketorolac 30 Mg/Ml Sdv) 30 mg IVPUSH ONETIME ONE Stop: 08/13/20 11:47 Last Admin: 08/13/20 12:09 Dose: 30 mg Documented by: Sodium Chloride (Sodium Chloride 0.9% 10 Ml Syringe) 10 ml FLUSH ASDIRECTED PRN PRN Reason: Keep Vein Open Last Admin: 08/13/20 11:43 Dose: 10 ml Documented by: Sodium Chloride (Sodium Chloride 0.9% 2.5 Ml Syringe) 2.5 ml FLUSH ASDIRECTED PRN PRN Reason: Keep Vein Open Last Admin: 08/13/20 11:43 Dose: 2.5 ml Documented by: - Exam General: Alert, Oriented, Cooperative, No Acute Distress Lungs: Clear to Auscultation, Normal Respiratory Effort Cardiovascular: Regular Rate, Regular Rhythm GI/Abdominal Exam: Normal Bowel Sounds, Soft, Non-Tender Back Exam: Normal Inspection, Full Range of Motion Extremities: Normal Inspection, Normal Range of Motion, Non-Tender, No Pedal Edema Peripheral Pulses: 2+: Radial (R) Wound/Incisions: No Drainage (No further drainage noted to puncture sites. Erythema has not expanded appears to be slightly better than yesterday. Redness does extend proximally to just below the elbow, does not include elbow. Overall inflammation and edema is improving with better movement of fingers and wrist. CMS intact) Psy/Mental Status: Alert, Normal Affect, Normal Mood - Patient Data Lab Results Last 24 hrs: Laboratory Results - last 24 hr 08/13/20 08/13/20 08/13/20 Range/Units 11:52 11:52 12:03 WBC 6.94 (4.0-11.0) K/uL RBC 4.46 (4.30-5.90) M/uL Hgb 13.2 (12.0-16.0) g/dL Hct 39.4 (36.0-46.0) % MCV 88.3 (80.0-98.0) fL MCH 29.6 (27.0-32.0) pg MCHC 33.5 (31.0-37.0) g/dL RDW Std Deviation 41.3 (28.0-62.0) fl RDW Coeff of Trudy 13 (11.0-15.0) % Plt Count 235 (150-400) K/uL MPV 9.60 (7.40-12.00) fL Neut % (Auto) 75.6 (48.0-80.0) % Lymph % (Auto) 10.7 L (16.0-40.0) % [place] % (Auto) 10.4 (0.0-15.0) % Eos % (Auto) 3.0 (0.0-7.0) % Baso % (Auto) 0.3 (0.0-1.5) % Neut # (Auto) 5.3 (1.4-5.7) K/uL Lymph # (Auto) 0.7 (0.6-2.4) K/uL [place] # (Auto) 0.7 (0.0-0.8) K/uL Eos # (Auto) 0.2 (0.0-0.7) K/uL Baso # (Auto) 0.0 (0.0-0.1) K/uL Nucleated RBC % 0.0 /100WBC Nucleated RBCs # 0 K/uL Lactate (0.20-2.00) mmol/L Sodium 137 (136-145) mmol/L Potassium 4.3 (3.5-5.1) mmol/L Chloride 104 (98-107) mmol/L Carbon Dioxide 22.9 (21.0-32.0) mmol/L BUN 13 (7.0-18.0) mg/dL Creatinine 0.9 (0.6-1.0) mg/dL Est Cr Clr Drug Dosing 67.45 mL/min Estimated GFR (MDRD) > 60.0 ml/min Glucose 99 (74-106) mg/dL Calcium 8.7 (8.5-10.1) mg/dL Magnesium (1.8-2.4) mg/dL Total Bilirubin 0.5 (0.2-1.0) mg/dL AST 17 (15-37) IU/L ALT 31 (14-63) IU/L Alkaline Phosphatase 90 (46-116) U/L Total Protein 7.3 (6.4-8.2) g/dL Albumin 3.6 (3.4-5.0) g/dL Globulin 3.7 (2.6-4.0) g/dL Albumin/Globulin Ratio 1.0 (0.9-1.6) SARS-CoV-2 RNA (ABRIL) NEGATIVE (NEGATIVE) 08/13/20 08/14/20 08/14/20 Range/Units 12:07 06:40 06:40 WBC 4.77 (4.0-11.0) K/uL RBC 3.94 L (4.30-5.90) M/uL Hgb 11.7 L (12.0-16.0) g/dL Hct 34.8 L (36.0-46.0) % MCV 88.3 (80.0-98.0) fL MCH 29.7 (27.0-32.0) pg MCHC 33.6 (31.0-37.0) g/dL RDW Std Deviation 42.0 (28.0-62.0) fl RDW Coeff of Trudy 13 (11.0-15.0) % Plt Count 212 (150-400) K/uL MPV 9.80 (7.40-12.00) fL Neut % (Auto) 62.8 (48.0-80.0) % Lymph % (Auto) 22.2 (16.0-40.0) % [place] % (Auto) 9.6 (0.0-15.0) % Eos % (Auto) 4.8 (0.0-7.0) % Baso % (Auto) 0.6 (0.0-1.5) % Neut # (Auto) 3.0 (1.4-5.7) K/uL Lymph # (Auto) 1.1 (0.6-2.4) K/uL [place] # (Auto) 0.5 (0.0-0.8) K/uL Eos # (Auto) 0.2 (0.0-0.7) K/uL Baso # (Auto) 0.0 (0.0-0.1) K/uL Nucleated RBC % 0.0 /100WBC Nucleated RBCs # 0 K/uL Lactate 0.9 (0.20-2.00) mmol/L Sodium 135 L (136-145) mmol/L Potassium 4.3 (3.5-5.1) mmol/L Chloride 103 (98-107) mmol/L Carbon Dioxide 22.5 (21.0-32.0) mmol/L BUN 15 (7.0-18.0) mg/dL Creatinine 0.9 (0.6-1.0) mg/dL Est Cr Clr Drug Dosing 67.45 mL/min Estimated GFR (MDRD) > 60.0 ml/min Glucose 115 H (74-106) mg/dL Calcium 7.7 L (8.5-10.1) mg/dL Magnesium 1.8 (1.8-2.4) mg/dL Total Bilirubin (0.2-1.0) mg/dL AST (15-37) IU/L ALT (14-63) IU/L Alkaline Phosphatase (46-116) U/L Total Protein (6.4-8.2) g/dL Albumin (3.4-5.0) g/dL Globulin (2.6-4.0) g/dL Albumin/Globulin Ratio (0.9-1.6) SARS-CoV-2 RNA (ABRIL) (NEGATIVE) Result Diagrams: 08/14/20 06:40 08/14/20 06:40 Noah Results Last 24 hrs: Microbiology 08/13/20 12:05 Anaerobic Blood Culture - Final Blood - Venous Sepsis Event Note - Evaluation Sepsis Screening Result: No Definite Risk - Focused Exam Vital Signs: Vital Signs Temp Pulse Resp BP BP Pulse Ox 08/14/20 07:56 97.8 F 64 18 116/69 98 08/14/20 04:28 97.5 F 71 18 128/70 97 08/14/20 00:37 97.0 F 74 16 131/74 97 - Problem List & Annotations (1) Cat bite of hand SNOMED Code(s): 626903188 Code(s): S61.459A - OPEN BITE OF UNSPECIFIED HAND, INITIAL ENCOUNTER; W55.01XA - BITTEN BY CAT, INITIAL ENCOUNTER Status: Acute Current Visit: Yes Qualifiers: Encounter type: subsequent encounter Laterality: right Qualified Code(s): S61.451D - Open bite of right hand, subsequent encounter; W55.01XD - Bitten by cat, subsequent encounter (2) Cellulitis SNOMED Code(s): 314667054 Code(s): L03.90 - CELLULITIS, UNSPECIFIED Status: Acute Current Visit: Yes Qualifiers: Site of cellulitis: extremity Site of cellulitis of extremity: upper extremity Laterality: right Qualified Code(s): L03.113 - Cellulitis of right upper limb (3) Hypothyroidism SNOMED Code(s): 71996935 Code(s): E03.9 - HYPOTHYROIDISM, UNSPECIFIED Status: Acute Current Visit: Yes - Problem List Review Problem List Initiated/Reviewed/Updated: Yes - My Orders Last 24 Hours: My Active Orders 08/13/20 15:27 Oxygen Therapy [RC] PRN Up With Assistance [RC] ASDIRECTED VTE/DVT Education [RC] PER UNIT ROUTINE Vital Signs [RC] Q4H Acetaminophen [TylenoL] 650 mg PO Q4H PRN Ondansetron [Zofran] 4 mg IVPUSH Q4H PRN Sodium Chloride 0.9% [Saline Flush] 2.5 ml FLUSH ASDIRECTED PRN oxyCODONE 5 mg PO Q4H PRN Saline Lock Insert [OM.PC] Routine Resuscitation Status Routine 08/13/20 15:28 Intake and Output [RC] Q12H 08/13/20 Dinner Regular Diet [DIET] Enoxaparin [Lovenox] 40 mg SUBCUT Q24H 08/13/20 16:09 Morphine 2 mg IVPUSH Q4H PRN 08/13/20 16:10 Elevate Extremity [RC] BID 08/13/20 16:37 Ibuprofen [Motrin] 400 mg PO Q6H PRN 08/13/20 16:38 Communication Order [RC] PRN Neurovascular Check [RC] Q4H 08/13/20 16:39 Vaccines to be Administered [RC] PER UNIT ROUTINE 08/13/20 20:30 Clindamycin Phosphate in D5W [Cleocin in D5W 600 MG/50 ML] 600 mg Premix Bag 1 bag IV Q6H 08/13/20 21:00 Piperacillin/Tazobactam [Piperacil-Tazobact] 3.375 gm Sodium Chloride 0.9% [Normal Saline] 50 ml IV Q6H - Plan Plan:: This 45-year-old female admitted with cellulitis after cat bite to right hand 1. Right hand cellulitis secondary to cat bite -Continue Zosyn -Blood cultures pending -Mild improvement overnight. -Dr. Linnea Bustillos, hand surgeon reviewed case and feels as though patient is on appropriate antibiotic therapy. She also recommends that patient continue aggressive mobilization of wrist and fingers to prevent scar tissue formation along the tendon sheath. Since the hand cellulitis is improving she feels that tenosynovitis is likely not happening but to continue to monitor closely over the next day or 2 with IV antibiotic therapy. On discharge she would not necessarily rule out Augmentin due to failed outpatient management. She could potentially go home on Augmentin she would check nasal swab for MRSA as if this is positive she will likely need to have more MRSA coverage in case. She recommended possibly Clinda plus Bactrim or Augmentin plus Bactrim or doxycycline alone if MRSA is not a concern. We will arrange follow-up with PCP 2 to 3 days following discharge. Patient was notified of this discussion and agrees. -Encouraged mobilization of wrist and fingers -Keep hand elevated -Ice as needed -Monitor CMS every 4 hours -Repeat lab work in a.m. VTE prophylaxis: Lovenox CODE STATUS: Full code Dispo 2 to 3 days pending improvement.
[2020-08-14] MEDS: Acidophilus with Citrus Pectin Tab PO SCH (10:35)
[2020-08-14] MEDS: Enoxaparin 40 MG/0.4 ML Syringe SUBCUT SCH (15:53)
[2020-08-15] MEDS: Piperacillin/Tazobactam 3.375 GM in Sodium Chloride 0.9% 50 ML IV SCH ×3 (03:54→14:34)
[2020-08-15 06:10] LABS: BLOOD UREA NITROGEN,BUN 16 mg/dL (7.0-18.0); CARBON DIOXIDE,CO2 26.5 mmol/L (21.0-32.0); CHLORIDE,CL 105 mmol/L (98-107); GLUCOSE RANDOM 118 mg/dL (74-106); POTASSIUM,K 4.6 mmol/L (3.5-5.1); SODIUM,NA 141 mmol/L (136-145)
[2020-08-15] MEDS: Ibuprofen 400 MG Tab PO PRN ×2 (08:07→15:14)
[2020-08-15] MEDS: Acidophilus with Citrus Pectin Tab PO SCH (08:10)
[2020-08-15] MEDS ORDERED: Iopamidol 755 MG/ML 500 ML Multipack Bottle IVPUSH ONE (12:27)
--- NOTE | 2020-08-15 12:57 | CT ---
INDICATION: History of cat bite. Assess for abscess. COMPARISON: Plain film 13 August 2020. TECHNIQUE: 100 mL Isovue-370 IV contrast. FINDINGS: Artifact from patient`s rings limits assessment somewhat at the finger bases. Small infiltrating peripherally enhancing irregularly margined fluid collection in the deep soft tissues at the dorsal carpus level overlying the radial margin of the radiocarpal joint and scaphoid. Proximal to distal length roughly 18 mm. Greatest width is 12 mm in greatest depth is roughly 4 mm. Small amount of enhancing tenosynovitis fluid in the distal extensor carpi radialis brevis from the level of the abscess at the scaphoid to the metacarpal insertion. Moderately dense subcutaneous edema and dorsal soft tissue swelling. IMPRESSION: Deep soft tissue abscess over the extensor carpi radialis tendons at the radiocarpal joint and to the midcarpal joint. Likely infectious tenosynovitis in the extensor carpi radialis brevis to the metacarpal insertion but not proximal from the level of Christie`s tubercle. Please note that all CT scans at this facility use dose modulation, iterative reconstruction, and/or weight-based dosing when appropriate to reduce radiation dose to as low as reasonably achievable. Dictated by Juan Sarmiento MD @ 08/15/2020 12:55:[address] Juan Sarmiento @ Aug 15 2020 12:55PM
--- NOTE | 2020-08-15 14:44 | PCM.DCSUM1 ---
Discharge Summary - Hospital Course Brief History: This a 45-year-old female with little pmh presented to the ED for complaints of increased right hand erythema and swelling from the cat bite from Tuesday morning. The patient saw Dr. Frausto on Tuesday afternoon and was prescribed Augmentin she took 2 tablets on Tuesday, 2 tablets yesterday, and 1 tablet today. She has had increased redness and swelling each day. Yesterday she mandeep a graham around her the edges of the erythema and today there is marked erythema superior to wound. She then went to see Dr. Frausto today and was sent to the ED for evaluation of IV antibiotic therapy due to failed oral antibiotic therapy. Patient reports pain was quite elevated in the ER but after Toradol it improved significantly. She is able to move elbow without any pain. Wrist has some limited movement due to inflammation seen with all her fingers. She reports after pain control improved her movement improved as well. Patient denies any fever, chills, headache. Denies any chest pain, shortness of breath or cough. Denies any abdominal pain, nausea, vomiting, diarrhea, constipation or dysuria. Has not noted any blood in urine or stool. She is unsure of tetanus vaccination after she was asked about it initially in the ER but thinking back she may be out of date. She reports as far as she knows the cat is up-to-date on vaccinations. She denies any alcohol use no tobacco use no recreational drug use. In the ER no leukocytosis noted white count 6000. Lactic acid 0.9 BUN and creatinine 13 and 0.9 Covid negative. X-ray of the hand revealed severe dorsal and distal forearm soft tissue swelling without obvious subcutaneous emphysema or radiopaque foreign body no displaced fracture. Head CT was also obtained second to severity of cellulitis. This noted fat infiltration in the dorsum of the hand, wrist, and distal forearm from edema or cellulitis. Small amount of fluid in the third extensor compartment tendon sheath and around the flexor tendons at the wrist. Septic tenosynovitis is not excluded no fluid collections otherwise. No bony abnormality noted. In the ER she was treated with Zosyn and clindamycin. Blood cultures obtained patient given Toradol as well as 1 L fluid bolus. She will be admitted inpatient for cellulitis from cat bite failed outpatient management. Diagnosis: Stroke: No - Discharge Data Discharge Date: 08/15/20 Discharge Disposition: DC/Tfer to Acute Hospital 02 Condition: Good - Referral to Home Health Primary Care Physician: PCP None - Discharge Diagnosis/Problem(s) (1) Cat bite of hand SNOMED Code(s): 412054557 ICD Code: S61.459A - OPEN BITE OF UNSPECIFIED HAND, INITIAL ENCOUNTER; W55.01XA - BITTEN BY CAT, INITIAL ENCOUNTER Status: Acute Current Visit: Yes Qualifiers: Encounter type: subsequent encounter Laterality: right Qualified Code(s): S61.451D - Open bite of right hand, subsequent encounter; W55.01XD - Bitten by cat, subsequent encounter (2) Cellulitis SNOMED Code(s): 836143882 ICD Code: L03.90 - CELLULITIS, UNSPECIFIED Status: Acute Current Visit: Yes Qualifiers: Site of cellulitis: extremity Site of cellulitis of extremity: upper extremity Laterality: right Qualified Code(s): L03.113 - Cellulitis of right upper limb (3) Hypothyroidism SNOMED Code(s): 73065225 ICD Code: E03.9 - HYPOTHYROIDISM, UNSPECIFIED Status: Acute Current Visit: Yes - Patient Summary/Data Hospital Course: Admission diagnoses Cat bite right hand/wrist with secondary cellulitis Discharge diagnoses Right wrist deep abscess secondary to cat bite This 45-year-old female was admitted on 08/13/2020 for cellulitis secondary to cat bite on Tuesday morning. By tuesday afternoon it was red and painful and she was able to be seen by PCP. She was started on Augmentin. She was told to come back if redness continued to worsen. The redness did worsen daily but she did not go in until Tuesday afternoon to see PCP. He directed her to come to the ER. In the ER CT scan which showed possible septic tenosynovitis but patient was able to move wrist and fingers flex and extend with mild pain. She was treated with Zosyn as well as clindamycin. Dr. Bustillos, plastic/hand surgeon at [facility] was consulted via telephone we discussed CT findings and felt that it was reasonable to keep patient here on IV fluids. If there continued to be suspicion for abscess reimage and consider drainage at that point. Patient cellulitis and erythema has steadily improved. Today there is more focal in duration and slight fluctuance noted to puncture site on dorsum of right wrist. CT with contrast was repeated to evaluate for soft tissue abscess. CT of wrist revealed deep soft tissue abscess over the extensor carpi radialis tendons at the radiocarpal joint and to the midcarpal joint. Likely infectious tenosynovitis in the extensor carpi radialis brevis to the metacarpal insertion but not proximal from the level of the Christie tubercle. Attempted to contact Dr. Bustillos she is unavailable at this time. Patient requested closer surgical consultation. Hand surgeon Dr. Benson was available in [facility] [address]. After discussion with him he has kindly accepted patient for transfer at this time for I&D of abscess. He requested patient to come by ambulance and to be n.p.o. as of right now. Patient was eating when discussion at 2:00 was had. Patient was then made n.p.o. patient will receive Zosyn right before leaving. She has been receiving Zosyn 4.5 every 6 hours since admission. Patient does have 2 rings on middle and ring finger which have attempted to remove during her stay but patient has been wanting to keep these on. CMS has remained intact pulses are good cap refill intact. Patient vital signs otherwise stable she is not tachycardic blood pressure is stable no leukocytosis. Patient and significant other updated at bedside and they are agreeable to transfer at this time. Patient will be transferred by ground ambulance to [facility] at this time for abscess of right wrist secondary to cat bite. - Patient Instructions Diet: NPO (as of 1429) Notify Provider of: Fever, Increased Pain, Swelling and Redness, Drainage, Nausea and/or Vomiting - Discharge Plan *PRESCRIPTION DRUG MONITORING PROGRAM REVIEWED*: Not Applicable *COPY OF PRESCRIPTION DRUG MONITORING REPORT IN PATIENT TAWANDA: Not Applicable Home Medications: Home Meds Levothyroxine 1 tab PO DAILY 08/13/20 [History] Piperacillin/Tazobactam [Piperacil-Tazobact] 3.375 gm IV Q6H adv 08/15/20 [Rx] Oxygen Therapy Mode: Room Air Patient Handouts: Animal Bite, Adult, [id number], Cellulitis, Adult, [id number] Forms: ED Department Discharge Referrals: Graham Frausto MD [Ordering Only Provider] - 08/18/20 1:30 pm - Discharge Summary/Plan Comment DC Time >30 min.: No - Patient Data Vitals - Most Recent: Last Vital Signs Temp 98.2 F 08/15/20 11:51 Pulse 80 08/15/20 11:51 Resp 17 08/15/20 11:51 BP 140/89 08/15/20 11:51 Pulse Ox 100 08/15/20 11:51 Weight - Most Recent: 72.665 kg I&O - Last 24 hours: Intake & Output 08/14/20 08/15/20 08/15/20 22:59 06:59 14:59 Intake Total 2049 Balance 2049 Lab Results - Last 24 hrs: Laboratory Results - last 24 hr 08/15/20 08/15/20 Range/Units 05:14 05:14 WBC 4.20 (4.0-11.0) K/uL RBC 4.23 L (4.30-5.90) M/uL Hgb 12.4 (12.0-16.0) g/dL Hct 37.9 (36.0-46.0) % MCV 89.6 (80.0-98.0) fL MCH 29.3 (27.0-32.0) pg MCHC 32.7 (31.0-37.0) g/dL RDW Std Deviation 42.8 (28.0-62.0) fl RDW Coeff of Trudy 13 (11.0-15.0) % Plt Count 275 (150-400) K/uL MPV 9.60 (7.40-12.00) fL Neut % (Auto) 53.3 (48.0-80.0) % Lymph % (Auto) 29.8 (16.0-40.0) % [place] % (Auto) 8.6 (0.0-15.0) % Eos % (Auto) 7.6 H (0.0-7.0) % Baso % (Auto) 0.7 (0.0-1.5) % Neut # (Auto) 2.2 (1.4-5.7) K/uL Lymph # (Auto) 1.3 (0.6-2.4) K/uL [place] # (Auto) 0.4 (0.0-0.8) K/uL Eos # (Auto) 0.3 (0.0-0.7) K/uL Baso # (Auto) 0.0 (0.0-0.1) K/uL Nucleated RBC % 0.0 /100WBC Nucleated RBCs # 0 K/uL Sodium 141 (136-145) mmol/L Potassium 4.6 (3.5-5.1) mmol/L Chloride 105 (98-107) mmol/L Carbon Dioxide 26.5 (21.0-32.0) mmol/L BUN 16 (7.0-18.0) mg/dL Creatinine 0.9 (0.6-1.0) mg/dL Est Cr Clr Drug Dosing 67.94 mL/min Estimated GFR (MDRD) > 60.0 ml/min Glucose 118 H (74-106) mg/dL Calcium 9.1 (8.5-10.1) mg/dL Magnesium 1.8 (1.8-2.4) mg/dL JOYCELYN Results - Last 24 hrs: Microbiology 08/13/20 12:20 Aerobic Blood Culture - Preliminary Blood - Venous - Lab Draw NO GROWTH AFTER 2 DAYS Anaerobic Blood Culture - Preliminary NO GROWTH AFTER 2 DAYS 08/13/20 12:05 Aerobic Blood Culture - Preliminary Blood - Venous NO GROWTH AFTER 2 DAYS Anaerobic Blood Culture - Final Med Orders - Current: Current Medications Acetaminophen (Acetaminophen 325 Mg Tab) 650 mg PO Q4H PRN PRN Reason: Pain (Mild 1-3)/fever Acidophilus/Pectin (Acidophilus With [place] Pectin Tab) 1 tab PO DAILY [facility] Last Admin: 08/15/20 08:10 Dose: 1 tab Documented by: Enoxaparin Sodium (Enoxaparin 40 Mg/0.4 Ml Syringe) 40 mg SUBCUT Q24H [facility] Last Admin: 08/14/20 15:53 Dose: 40 mg Documented by: Piperacillin Sod/Tazobactam (Sod 3.375 gm/ Sodium Chloride) 50 mls @ 100 mls/hr IV Q6H [facility] Last Admin: 08/15/20 09:17 Dose: 100 mls/hr Documented by: Ibuprofen (Ibuprofen 400 Mg Tab) 400 mg PO Q6H PRN PRN Reason: Pain Last Admin: 08/15/20 08:07 Dose: 400 mg Documented by: Morphine Sulfate (Morphine 2 Mg/Ml Syringe) 2 mg IVPUSH Q4H PRN PRN Reason: Pain Ondansetron HCl (Ondansetron 4 Mg/2 Ml Sdv) 4 mg IVPUSH Q4H PRN PRN Reason: Nausea Oxycodone HCl (Oxycodone 5 Mg Tab) 5 mg PO Q4H PRN PRN Reason: Pain (moderate 4-6) Last Admin: 08/14/20 20:35 Dose: 5 mg Documented by: Sodium Chloride (Sodium Chloride 0.9% 2.5 Ml Syringe) 2.5 ml FLUSH ASDIRECTED PRN PRN Reason: Keep Vein Open Discontinued Medications Diphtheria/Tetanus/Acell Pertussis (Diphtheria,Pertussis(Acell),Tetanus Vaccine 0.5 Ml Syringe) 0.5 ml IM .ONCE ONE Stop: 08/13/20 17:01 Last Admin: 08/13/20 18:05 Dose: Not Given Documented by: Sodium Chloride (Normal Saline) 1,000 mls @ 999 mls/hr IV .BOLUS ONE Stop: 08/13/20 13:18 Last Admin: 08/13/20 13:02 Dose: 999 mls/hr Documented by: Piperacillin Sod/Tazobactam (Sod 3.375 gm/ Sodium Chloride) 50 mls @ 100 mls/hr IV ONETIME ONE Stop: 08/13/20 14:50 Last Admin: 08/13/20 15:04 Dose: 100 mls/hr Documented by: Clindamycin Phosphate 600 mg/ (Premix) 50 mls @ 100 mls/hr IV ONETIME STA Stop: 08/13/20 14:50 Last Admin: 08/13/20 14:31 Dose: 100 mls/hr Documented by: Clindamycin Phosphate 600 mg/ (Premix) 50 mls @ 100 mls/hr IV Q6H [facility] Last Admin: 08/14/20 08:19 Dose: 100 mls/hr Documented by: Iopamidol (Iopamidol 755 Mg/Ml 500 Ml Multipack Bottle) 75 ml IVPUSH ONETIME STA Stop: 08/13/20 18:41 Last Admin: 08/13/20 18:41 Dose: 75 ml Documented by: Iopamidol (Iopamidol 755 Mg/Ml 500 Ml Multipack Bottle) 100 ml IVPUSH ONETIME ONE Stop: 08/15/20 12:28 Last Admin: 08/15/20 12:27 Dose: 100 ml Documented by: Ketorolac Tromethamine (Ketorolac 30 Mg/Ml Sdv) 30 mg IVPUSH ONETIME ONE Stop: 08/13/20 11:47 Last Admin: 08/13/20 12:09 Dose: 30 mg Documented by: Sodium Chloride (Sodium Chloride 0.9% 10 Ml Syringe) 10 ml FLUSH ASDIRECTED PRN PRN Reason: Keep Vein Open Last Admin: 08/13/20 11:43 Dose: 10 ml Documented by: Sodium Chloride (Sodium Chloride 0.9% 2.5 Ml Syringe) 2.5 ml FLUSH ASDIRECTED PRN PRN Reason: Keep Vein Open Last Admin: 08/13/20 11:43 Dose: 2.5 ml Documented by: - Exam General: Reports: Alert, Oriented Lungs: Reports: Clear to Auscultation, Normal Respiratory Effort Cardiovascular: Reports: Regular Rate, Regular Rhythm Wound/Incisions: Reports: No Drainage, Erythema Improving, Other (Increased induration and focal erythema noted to the right dorsum of wrist. Erythema that extended proximally on the forearm has improved significantly. Swelling to hand and fingers has improved significantly as well.) Psy/Mental Status: Reports: Alert, Normal Affect, Normal Mood
[2020-08-15] MEDS: oxyCODONE 5 MG Tab PO PRN (15:15)
== END 2020-08-15 15:45 | DRG 383 ==
LOC: MW.ED 11:12 → MW.MS 14:55
PROVIDERS: ADMIT Student in an Organized Health Care Education/Training Program; ATTEND Student in an Organized Health Care Education/Training Program
DX: L02.413 Cutaneous abscess of right upper limb (principal); L03.113 Cellulitis of right upper limb; E03.9 Hypothyroidism, unspecified; S61.551A Open bite of right wrist, initial encounter; W55.01XA Bitten by cat, initial encounter; Y92.89 Other specified places as the place of occurrence of the external cause; Z20.822 Contact with and (suspected) exposure to COVID-19
CPT/HCPCS: 36415; 73130-26-RT; 73130-RT; 73201-26-RT; 73201-RT; 80048; 80053; 83605; 83735; 85025; 87040; 87070; 96374; 99285-25; A9270-GY; J1650; J1885; J2543; J3490; J7030; Q9967; U0002